=== PATIENT | female | born 1995 | race Caucasian/White ===

== ENCOUNTER → 2020-04-11 16:15 | Outpatient (CLI) | payer OTHER, SELFPAY ==
[2020-04-11 21:15] LABS: Hepatitis B Surface Antigen NEGATIVE s/c (NEGATIVE)
[2020-04-11 21:29] LABS: HIV 1 & 2 Ab/Ag 4th Gen Combo NEGATIVE (NEGATIVE); Hep C Virus Ab w/Reflex Quant NEGATIVE s/c (NEGATIVE)
[2020-04-13 04:14] LABS: Hepatitis B Core AB w/Reflex Negative (Negative)
[2020-04-13 04:36] LABS: RPR Screen Non Reactive (Non Reactive)
[2020-04-14 03:20] LABS: Chlamydia trachomatis NAA Negative (Negative); Neisseria gonorrhoeae NAA Negative (Negative)
== END ==
PROVIDERS: Family Provider Family Medicine; PCP Registered Nurse Diabetes Educator; Referring Provider Registered Nurse Diabetes Educator; Visit Provider Registered Nurse Diabetes Educator
DX: Z72.51 High risk heterosexual behavior (principal)
CPT/HCPCS: 36415; 86592; 86696; 86704; 86803; 87340; 87389; 87491; 87591